=== PATIENT | female | born 1990 | race Hispanic/Latino ===

== ENCOUNTER 2019-10-07 07:58 | Emergency (ER) | payer SELFPAY ==
[~2019-10-07] VITALS: Ht 152.4 cm; Wt 67.1 kg
== END 2019-10-07 08:37 | disposition home or self-care (01) ==
LOC: ER 07:58
DX: R05 Cough (principal); J20.9 Acute bronchitis, unspecified; J30.2 Other seasonal allergic rhinitis
CPT/HCPCS: 99282

== ENCOUNTER 2020-05-23 13:53 | Emergency (ER) | payer OTHER ==
[~2020-05-23] VITALS: Ht 152.4 cm; Wt 69.9 kg
[2020-05-23 15:53] VITALS: BP 117/86
== END 2020-05-23 15:54 | disposition home or self-care (01) ==
LOC: ER 14:04
DX: R07.89 Other chest pain (principal); J40 Bronchitis, not specified as acute or chronic; R05 Cough
CPT/HCPCS: 71045; 93005; 99283